=== PATIENT | female | born 1950 | race Caucasian/White ===

== ENCOUNTER 2017-04-04 14:42 | Outpatient (CLI) | payer MEDICARE ==
--- NOTE | 2017-04-04 17:17 | RAD ---
FOUR VIEWS OF THE LEFT KNEE 04/04/2017 COMPARISON: None. HISTORY: Pain, twisted left knee 6 days ago, injury. FINDINGS: No significant knee joint effusion. There is patellofemoral joint space narrowing with posterior pa tellar osteophyte formation. No acute fracture or evidence of dislocation. There is mild to moderate lateral compartment narrowing with osteophyte formation of the lateral fem oral condyle. There is mild/moderate medial compartment narrowing. IMPRESSION: Degenerative change. No acute fracture or dislocation. POS: TOYA
== END 2017-04-04 14:43 | disposition home or self-care (01) ==
LOC: SCSRAD 14:42
PROVIDERS: ATTEND Nurse Practitioner Family
DX: M25.562 Pain in left knee (principal); M17.12 Unilateral primary osteoarthritis, left knee

== ENCOUNTER 2019-04-20 13:38 | Outpatient (CLI) | payer MEDICARE ==
--- NOTE | 2019-04-20 16:52 | MMO ---
Bilateral MAMMO Bilat Screen [facility]. CLINICAL HISTORY: Patient is 69 years old and is seen for screening. The patient has the following family history of breast cancer: 2 paternal aunts. The patient has no personal history of cancer. VIEWS: The views performed were: bilateral craniocaudal with tomosynthesis and bilateral mediolateral oblique with tomosynthesis. FILMS COMPARED: The present examination has been compared to prior imaging studies performed at [facility] on 05/25/2011, 05/26/2012, 06/04/2013 and 06/12/2014. This study has been interpreted with the assistance of computer-aided detection. MAMMOGRAM FINDINGS: There are scattered fibroglandular densities. There are stable benign appearing calcifications seen in both breasts. There are no suspicious masses, calcifications or areas of architectural distortion. There are no suspicious masses, suspicious calcifications, or new areas of architectural distortion. IMPRESSION: THERE IS NO MAMMOGRAPHIC EVIDENCE OF MALIGNANCY. A ROUTINE FOLLOW-UP MAMMOGRAM IN 1 YEAR IS RECOMMENDED. THE RESULTS OF THIS EXAM WERE SENT TO THE PATIENT. ACR BI-RADS Category 2 - Benign finding MAMMOGRAPHY NOTE: 1. A negative mammogram report should not delay a biopsy if a dominant of clinically suspicious mass is present. 2. Approximately 10% to 15% of breast cancers are not detected by mammography. 3. Adenosis and dense breasts may obscure an underlying neoplasm. Reported by: PARTHA CHAIREZ MD Electonically Signed: [id number]
== END 2019-04-20 13:39 | disposition home or self-care (01) ==
LOC: BICMAMMO 13:38
PROVIDERS: ATTEND Family Medicine
DX: Z12.31 Encounter for screening mammogram for malignant neoplasm of breast (principal); Z80.3 Family history of malignant neoplasm of breast
CPT/HCPCS: 77063; 77067

== ENCOUNTER 2020-07-09 10:06 | Outpatient (CLI) | payer MEDICARE ==
--- NOTE | 2020-07-09 11:34 | MMO ---
Bilateral MAMMO Bilat Screen [facility]. CLINICAL HISTORY: Patient is 70 years old and is seen for screening. The patient has the following family history of breast cancer: paternal aunt. The patient has no personal history of cancer. VIEWS: The views performed were: bilateral craniocaudal with tomosynthesis and bilateral mediolateral oblique with tomosynthesis. FILMS COMPARED: The present examination has been compared to prior imaging studies performed at [facility] on 05/26/2012, 06/04/2013, 06/12/2014 and 04/20/2019. This study has been interpreted with the assistance of computer-aided detection. MAMMOGRAM FINDINGS: There are scattered fibroglandular densities. There are stable benign appearing calcifications seen in both breasts. There are no suspicious masses, suspicious calcifications, or new areas of architectural distortion. IMPRESSION: THERE IS NO MAMMOGRAPHIC EVIDENCE OF MALIGNANCY. A ROUTINE FOLLOW-UP MAMMOGRAM IN 1 YEAR IS RECOMMENDED. THE RESULTS OF THIS EXAM WERE SENT TO THE PATIENT. ACR BI-RADS Category 2 - Benign finding MAMMOGRAPHY NOTE: 1. A negative mammogram report should not delay a biopsy if a dominant of clinically suspicious mass is present. 2. Approximately 10% to 15% of breast cancers are not detected by mammography. 3. Adenosis and dense breasts may obscure an underlying neoplasm. Reported by: REBECCA CLARKE MD Electonically Signed: [id number]
--- NOTE | 2020-07-09 13:09 | BD ---
DEXA BONE DENSITY STUDY: Date: 07/09/2020 HISTORY: Postmenopausal. FINDINGS: Lumbar Spine: BMD (g/cm2) L1 0.916 T-Score: -0.7 L2 0.975 T-Score: -0.5 L3 0.926 T-Score: -1.4 L4 0.988 T-Score: -0.7 Total 0.952 T-Score: -0.9 Left Femoral Neck: 0.713 T-Score: -1.2 Total Femur: 0.914 T-Score: -0.2 IMPRESSION: 1. Normal bone mineral density of the lumbar spine. 2. Osteopenia of the left femoral neck. 3. The 10 year fracture risk for major osteoporotic fracture is 9.2% and for a hip fracture is 1.1%. These fracture probabilities are calculated for an untreated patient. POS: ROQUE
== END 2020-07-09 10:07 | disposition home or self-care (01) ==
LOC: BICMAMMO 10:06
PROVIDERS: ATTEND Physician Assistant Medical
DX: Z12.31 Encounter for screening mammogram for malignant neoplasm of breast (principal); Z13.820 Encounter for screening for osteoporosis; M85.852 Other specified disorders of bone density and structure, left thigh; Z78.0 Asymptomatic menopausal state; Z80.3 Family history of malignant neoplasm of breast
CPT/HCPCS: 77063; 77067; 77080

== ENCOUNTER 2021-04-18 14:27 | Observation (INO) | payer MEDICARE ==
[2021-04-18] MEDS ORDERED: methylPREDNISolone Sod Succ/PF 125 MG/2 ML VIAL ONE (15:20)
[2021-04-18] MEDS ORDERED: diphenhydrAMINE 50 MG/ML VIAL ONE (15:20)
[2021-04-18 15:23] LABS: #Basophils 0.1 thou/uL (0.0-0.2); #Eosinphils 0.2 thou/uL (0.0-0.7); #Lymphocytes 1.2 thou/uL (1.20-3.40); #Monocytes 0.7 thou/uL (0.11-0.59); #Neutrophils 4.6 thou/uL (1.40-6.50); %Basophils 0.9 % (0.0-1.0); %Eosinophils 3.4 % (0.0-10.0); %Lymphocytes 17.8 % (21.0-51.0); %Monocytes 9.8 % (0.0-10.0); %Neutrophils 68.2 % (42.0-75.0); Hemoglobin 13.5 g/dL (12.0-16.0); Mean Corpuscular HGB CONC 33.8 g/dL (32.0-36.0); Mean Corpuscular Hemoglobin 28.2 pg (27.0-31.0); Mean Corpuscular Volume 83.4 fL (78.0-98.0); Mean Platelet Volume 6.6 fL (7.4-10.4); Platelet Count 375 thou/uL (130-400); RBC Distribution Width 12.4 % (11.5-14.5); Red Blood Cell (RBC) Count 4.79 mill/uL (4.20-5.40); White Blood Cell (WBC) Count 6.7 thou/uL (4.8-10.8)
[2021-04-18 15:43] LABS: ALT (SGPT) 9 U/L (8-55); AST (SGOT) 11 U/L (5-34); Albumin 3.5 g/dL (3.4-4.8); Alkaline Phosphatase 58 U/L (40-110); Anion Gap 12 mmol/L (10-20); BUN (Urea Nitrogen) 16 mg/dL (9.8-20.1); Bilirubin, Total 0.5 mg/dL (0.2-1.2); Calc. Creatinine Clearance 0 mL/min (70-130); Calcium 9.6 mg/dL (7.8-10.44); Carbon Dioxide 28 mmol/L (23-31); Chloride 95 mmol/L (98-107); Globulin 3.2 g/dL (2.4-3.5); Glucose 97 mg/dL (83-110); Protein, Total 6.7 g/dL (5.8-8.1); Sodium 131 mmol/L (136-145)
[2021-04-18] MEDS ORDERED: Ondansetron PF 4 MG/2 ML Vial IVP PRN (17:24)
[2021-04-18] MEDS ORDERED: Ondansetron ODT 4 MG TAB PO PRN (17:24)
[2021-04-18] MEDS ORDERED: Calcium Carbonate 500 MG ChewTAB PO PRN (17:24)
[2021-04-18] MEDS ORDERED: Guaifenesin DM 100-10/5 ML UDCUP PO PRN (17:24)
[2021-04-18] MEDS ORDERED: HYDROcodone/Acetaminophen 5/325 mg Tablet PO PRN (17:24)
[2021-04-18] MEDS ORDERED: Bisacodyl 5 MG TAB PO PRN (17:24)
[2021-04-18] MEDS ORDERED: methylPREDNISolone Sod Succ 40 MG VIAL IVP PRN (17:28)
[2021-04-18] MEDS ORDERED: Sodium Chloride 0.9% 1,000 ML IV SCH (17:30)
[2021-04-18 18:05] VITALS: BMI 32.3
[2021-04-18] MEDS: Famotidine/PF 20 mg/2ml Vial SLOW IVP SCH (20:40)
[2021-04-18] MEDS: diphenhydrAMINE 50 MG/ML VIAL IVP PRN (20:44)
[2021-04-19] MEDS: Acetaminophen 325 MG TAB PO PRN ×2 (04:19→21:10)
[2021-04-19 05:27] LABS: #Basophils 0.1 thou/uL (0.0-0.2); #Lymphocytes 0.5 thou/uL (1.20-3.40); #Monocytes 0.2 thou/uL (0.11-0.59); #Neutrophils 5.2 thou/uL (1.40-6.50); %Basophils 1.6 % (0.0-1.0); %Eosinophils 0.2 % (0.0-10.0); %Lymphocytes 8.2 % (21.0-51.0); %Monocytes 2.9 % (0.0-10.0); %Neutrophils 87.1 % (42.0-75.0); Hemoglobin 12.9 g/dL (12.0-16.0); Mean Corpuscular HGB CONC 33.6 g/dL (32.0-36.0); Mean Corpuscular Volume 83.3 fL (78.0-98.0); Mean Platelet Volume 6.4 fL (7.4-10.4); Platelet Count 385 thou/uL (130-400); RBC Distribution Width 12.2 % (11.5-14.5); Red Blood Cell (RBC) Count 4.61 mill/uL (4.20-5.40)
[2021-04-19 05:51] LABS: Anion Gap 12 mmol/L (10-20); BUN (Urea Nitrogen) 12 mg/dL (9.8-20.1); Calc. Creatinine Clearance 109 mL/min (70-130); Calcium 9.2 mg/dL (7.8-10.44); Carbon Dioxide 24 mmol/L (23-31); Chloride 99 mmol/L (98-107); Glucose 168 mg/dL (83-110); Potassium 3.7 mmol/L (3.5-5.1); Sodium 131 mmol/L (136-145)
[2021-04-19] MEDS ORDERED: FLU VACC QS2021-22(65YR UP)/PF 240 MCG/0.7 ML SYRINGE IM ONE (09:00)
[2021-04-19] MEDS: Enoxaparin Sodium 40 MG/0.4 ML SYRINGE SC SCH (09:12)
[2021-04-19] MEDS: Fenofibrate 48 MG TAB PO SCH (09:13)
[2021-04-19] MEDS: Famotidine/PF 20 mg/2ml Vial SLOW IVP SCH ×2 (09:13→20:51)
[2021-04-19] MEDS: Nebivolol HCl 2.5 MG TAB PO SCH (09:13)
[2021-04-19] MEDS: Estrogens, Conjugated 0.3 MG TAB PO SCH (09:13)
[2021-04-19] MEDS: CeleCOXIB 100 MG CAP PO PRN (09:19)
[2021-04-19] MEDS ORDERED: methylPREDNISolone Sod Succ 40 MG VIAL IVP SCH (09:45)
[2021-04-19] MEDS: diphenhydrAMINE 50 MG/ML VIAL IVP PRN ×2 (13:52→20:47)
[2021-04-19 14:27] LABS: SARS-CoV-2 PCR by NAA Not Detected (NotDetected)
[2021-04-19] MEDS ORDERED: hydrALAZINE 20 MG/ML VIAL SLOW IVP PRN (21:14)
[2021-04-20] MEDS ORDERED: NIFEdipine XL 30 MG TAB PO SCH (09:15)
[2021-04-20] MEDS: Fenofibrate 48 MG TAB PO SCH (09:20)
[2021-04-20] MEDS: Nebivolol HCl 2.5 MG TAB PO SCH (09:20)
[2021-04-20] MEDS: Famotidine/PF 20 mg/2ml Vial SLOW IVP SCH (09:20)
[2021-04-20] MEDS: Enoxaparin Sodium 40 MG/0.4 ML SYRINGE SC SCH (09:21)
[2021-04-20] MEDS: Estrogens, Conjugated 0.3 MG TAB PO SCH (09:21)
[2021-04-20] MEDS: CeleCOXIB 100 MG CAP PO PRN (09:25)
[2021-04-20 11:50] VITALS: TEMP 97.8
[2021-04-20 13:41] VITALS: BP 149/84
== END 2021-04-20 14:00 | disposition home or self-care (01) ==
LOC: ERS 14:27 → 2SW 16:46
PROVIDERS: ADMIT Hospitalist; ATTEND Internal Medicine
DX: T78.3XXA Angioneurotic edema, initial encounter (principal); I11.9 Hypertensive heart disease without heart failure; M19.90 Unspecified osteoarthritis, unspecified site; E78.1 Pure hyperglyceridemia; E66.9 Obesity, unspecified; Z68.30 Body mass index [BMI] 30.0-30.9, adult; Z79.899 Other long term (current) drug therapy; Z88.8 Allergy status to other drugs, medicaments and biological substances; Z20.822 Contact with and (suspected) exposure to COVID-19
CPT/HCPCS: 80048; 80053; 85025 ×2; 93005; 96372 ×2; 96375; 96376 ×3; G0378 ×4; U0003; U0005; 36415; 96374; J0360; J1200; J1650; J2920; J2930; J7050; S0028

== ENCOUNTER 2025-04-29 14:23 | Emergency (ER) | payer MEDICARE ==
[2025-04-29] MEDS ORDERED: HYDROcodone/Acetaminophen 5/325 mg Tablet ONE (14:58)
[2025-04-29] MEDS ORDERED: Lidocaine 1% PF 5 ML VIAL ONE (15:11)
[2025-04-29] MEDS ORDERED: Amoxicillin/Potassium Clav 875 MG TAB ONE (15:50)
== END 2025-04-29 17:13 | disposition home or self-care (01) ==
LOC: ERS 14:23
DX: S02.2XXA Fracture of nasal bones, initial encounter for closed fracture (principal); I10 Essential (primary) hypertension; R29.701 NIHSS score 1; Z23 Encounter for immunization; W19.XXXA Unspecified fall, initial encounter
CPT/HCPCS: 12011; 70450; 70486; 72125; 73564; 90471; 90715; 99284; Q0162